=== PATIENT | female | born 2000 | race African-American/Black ===

== ENCOUNTER 2018-07-11 09:20 | Outpatient (CLI) | payer OTHER ==
--- NOTE | 2018-07-11 11:48 | ULT ---
ULTRASOUND PELVIC ULTRASOUND TRANSVAGINAL DOPPLER DUPLEX: DATE: 07-11-18 HISTORY: 18-year-old female with left sided pelvic pain. TECHNIQUE: Transabdominal transducer used to evaluate intrapelvic contents using the urinary bladder as an acous tic window. Endovaginal transducer used to visualize intrapelvic contents in greater detail. Color fl ow Doppler and Pulsed Doppler spectral waveform analysis of ovaries. FINDINGS: Uterus: 5 x 3.5 x 2.5 cm Endometrial stripe: 0.2 cm (2 mm) Right ovary: 3 x 2 x 2.5 cm Left ovary: 2.5 x 1.5 x 1.5 cm No uterine leiomyoma is identified. Blood flow is demonstrated in both ovaries. No ovarian cyst (defined as 2 cm or greater) is identified. Minimal free fluid is in the cul-de-sac. IMPRESSION: Normal. arabella POS: LISA
== END 2018-07-11 09:21 | disposition home or self-care (01) ==
LOC: BICULT 09:20 → EDSTATUS 10:00
PROVIDERS: ATTEND Clinical Nurse Specialist Medical-Surgical
DX: R10.32 Left lower quadrant pain (principal)
CPT/HCPCS: 76856